=== PATIENT | male | born 1980 | race Two or more races ===

== ENCOUNTER → 2017-10-23 14:13 | Outpatient (CLI) | payer MEDICAID ==
[2014-04-25 10:16] VITALS: BMI 29.8
[~2017-10-23 14:13] MED LIST: CLEOCIN HCL300 MG PO; HYDROCODONE-APA1 TAB PO
== END | disposition home or self-care (01) ==
LOC: D.NM 14:13
DX: R10.9 Unspecified abdominal pain (principal)

== ENCOUNTER 2017-11-15 06:46 | Day surgery (SDC) | payer MEDICAID ==
[~2017-11-15] VITALS: Ht 190.5 cm; Wt 104.3 kg
--- NOTE | ~2017-11-15 | OP ---
PATIENT NAME: BARBARA DALE MEDICAL RECORD: [id number] :80 LOCATION:D.OPS ADMISSION DATE: SURGEON: IFEANYI SHELBY MD DATE OF OPERATION: 11/15/2017 PREOPERATIVE DIAGNOSIS: Gallstones. POSTOPERATIVE DIAGNOSIS: Gallstones. PROCEDURE: Laparoscopic cholecystectomy. SURGEON: Ifeanyi Shelby MD PANTOGRAPH ENGRAVER: Ana Paula Crawford APRN REPORT OF OPERATION: The patient's abdomen was prepped and draped in sterile fashion. A cutdown was made on the superior aspect of the umbilicus, 0 Vicryls were placed on the fascia bilaterally and the fascia was incised with 15-blade. I then bluntly entered the peritoneal cavity and placed a 12-mm Kailee port. Under direct visualization, a 5 mm trocar was placed in the epigastrium and 2 more 5-mm trocars were placed in the right subcostal region. The gallbladder was grasped and elevated. There was no sign of inflammatory changes. The cystic artery and cystic duct were dissected free and these were clipped proximally and distally and ligated in standard fashion. The gallbladder was taken off the liver bed using electrocautery and placed into the right upper quadrant. Any bleeding from the liver bed was treated with electrocautery. We irrigated out the right upper quadrant and assured there was no sign of any bleeding or bile leakage. At this point, the ports and insufflation were then removed and the gallbladder was taken out through the umbilicus. The umbilical fascia was closed with interrupted 0 Vicryls times 3. The wounds were irrigated out with normal saline and infused with 10 mL of 0.25% Marcaine with epinephrine. The skin incisions were all closed with subcutaneous 5-0 Monocryl and dressed appropriately. COMPLICATIONS: None. CONDITION: Stable. ANESTHESIA: General endotracheal and local. BLOOD LOSS: Minimal. TRANSINT:[id number] Voice Confirmation ID: [id number] DOCUMENT ID: [id number] IFEANYI SHELBY MD at 1228 CC: [id number] DICTATION DATE: 11/15/17 1023 TECHNICAL SALES ADVISOR: 11/15/17 1035 [facility] 11/15/17 [place] [address]
[2017-11-15 07:01] LABS: BASOPHILS 0.2 % (0-2); EOSINOPHILS 1.6 % (0-7); HEMATOCRIT 40.9 % (42.0-54.0); HEMOGLOBIN 14.3 g/dL (13.5-17.5); IMMATURE GRANULOCYTES 0.2 % (0-5); LYMPHOCYTES 33.9 % (15-50); MCH 32.1 pg (26.0-34.0); MCV 91.7 fL (80.0-100.0); MEAN PLATELET VOLUME 10.1 fL (7.4-10.4); NEUTROPHILS 55.1 % (40-80); PLATELET COUNT 199 10x3/uL (130-400); RBC 4.46 10x6/uL (4.20-6.10); RDW 12.4 % (11.5-14.5); WBC 5.1 10x3/uL (4.8-10.8)
[2017-11-15 07:23] LABS: CALC OSMOLALITY 283 mosm/kg (275-300); CALCIUM 9.3 mg/dL (8.5-10.1); CARBON DIOXIDE 29.7 mmol/L (21.0-32.0); CHLORIDE - SERUM 105 mmol/L (98-107); GLUCOSE 97 mg/dL (74-106); POTASSIUM - SERUM 4.4 mmol/L (3.5-5.1); SODIUM 142 mmol/L (136-145); UREA NITROGEN 16 mg/dL (7-18); eGFR NON AFRICAN AMERICAN 89 mL/min (90-120)
[2017-11-15 08:39] VITALS: BP 127/77; Ht 190.5 cm; Wt 104.3 kg
[2017-11-15] MEDS ORDERED: HYDROCODONE-APA1 TAB PO (10:19)
== END 2017-11-15 14:24 | disposition home or self-care (01) ==
LOC: D.OPS 06:46 → D.PAN 13:15 → D.OPS 13:15
PROVIDERS: Surgery
DX: K82.8 Other specified diseases of gallbladder (principal); K80.80 Other cholelithiasis without obstruction; Z01.812 Encounter for preprocedural laboratory examination